=== PATIENT | female | born 1995 | race Caucasian/White ===

== ENCOUNTER 2017-02-10 06:25 | Day surgery (SDC) | payer OTHER ==
[~2017-02-10] VITALS: Ht 175.3 cm; Wt 77.1 kg
[2017-02-10] MEDS ORDERED: BACITRACIN ZINC 15 GM TOPICAL OINTMENT TP ONE (08:26)
[2017-02-10] MEDS ORDERED: ONDANSETRON HCL 4 MG/2 ML VIAL IVP ONE (08:26)
[2017-02-10] MEDS ORDERED: fentaNYL CITRATE/PF 100 MCG/2 ML AMP IVP ONE (08:26)
[2017-02-10] MEDS ORDERED: DEXAMETHASONE SOD PHOSPHATE 4 MG/ML VIAL IVP ONE (08:26)
[2017-02-10] MEDS ORDERED: NS IRRIG SOLN 1000 ML IR ONE (08:26)
[2017-02-10] MEDS ORDERED: SUCCINYLCHOLINE CHLORIDE 20 MG/ML(QUELICIN) IVP ONE (08:26)
[2017-02-10] MEDS ORDERED: PROPOFOL 200MG/ 20ML VIAL (DIPRIVAN) IV ONE (08:26)
[2017-02-10] MEDS ORDERED: CEFAZOLIN 2 GM IVPB PREMIX 50 ML IV ONE (08:26)
[2017-02-10] MEDS ORDERED: SEVOFLURANE 15 MIN GAS INH ONE (08:26)
[2017-02-10] MEDS ORDERED: MIDAZOLAM HCL 5 MG/5 ML VIAL IVP ONE (08:26)
[2017-02-10] MEDS ORDERED: BUPIVACAINE /EPINEPHRINE/PF 0.25% 30 ML VIAL INJ ONE (08:26)
[2017-02-10] MEDS ORDERED: LR 1,000 ML IV SCH (09:07)
[2017-02-10] MEDS ORDERED: HYDROmorphone 1 MG INJ. 1 MG/ML AMPUL IVP PRN (09:15)
[2017-02-10] MEDS ORDERED: ONDANSETRON HCL 4 MG/2 ML VIAL IVP PRN (09:15)
[2017-02-10] MEDS ORDERED: MEPERIDINE HCL/PF 25 MG/ML DISP.SYRIN IVP PRN ×2 (09:15)
[2017-02-10] MEDS ORDERED: HYDROmorphone 2 MG/ML VIAL IVP PRN (09:15)
[2017-02-10] MEDS: HYDROmorphone 2 MG/ML VIAL IVP PRN ×2 (09:55→10:00)
[2017-02-10] MEDS ORDERED: HYDROmorphone 1 MG INJ. 1 MG/ML AMPUL ONE (10:05)
[2017-02-10 10:41] VITALS: BP_SYST 112
== END 2017-02-10 12:10 | disposition home or self-care (01) ==
LOC: SDS 06:25 → SMU 06:25 → EDSTATUS 08:30 → SDS 12:10
PROVIDERS: ATTEND Otolaryngology
DX: J35.01 Chronic tonsillitis (principal); J35.1 Hypertrophy of tonsils; Z88.8 Allergy status to other drugs, medicaments and biological substances
CPT/HCPCS: 42826; 88304; J0330; J0690; J1100; J1170; J2250; J2405; J2704; J3010; J3490; J7120